=== PATIENT | female | born 1990 | race Two or more races ===

== ENCOUNTER 2017-06-17 19:23 | Emergency (ER) | payer OTHER ==
[~2017-06-17] VITALS: Ht 157.5 cm; Wt 86.3 kg
[2017-06-17 19:24] VITALS: BP 134/89
[2017-06-17] MEDS ORDERED: OXYcodone/APAP 5/325MG TABLET ONE (19:54)
[2017-06-17] MEDS ORDERED: ONDANSETRON ODT 4 MG ONE (19:54)
[2017-06-17] MEDS ORDERED: IBUPROFEN 200 MG TABLET PO ONE (20:00)
[2017-06-17] MEDS ORDERED: OXYcodone/APAP 5/325MG TABLET PO ONE (20:00)
[2017-06-17] MEDS ORDERED: ONDANSETRON ODT 4 MG PO ONE (20:00)
[2017-06-17] MEDS ORDERED: IBUPROFEN 200 MG TABLET ONE (20:05)
[2017-06-17 21:15] LABS: HEMATOCRIT 39.9 % (34.6-47.8); HEMOGLOBIN 13.4 g/dL (11.7-16.4); WHITE BLOOD COUNT 10.3 x10^3/uL (3.4-10)
[2017-06-17 21:27] LABS: BLOOD UREA NITROGEN 23 mg/dL (7-18)
== END 2017-06-17 21:47 | disposition home or self-care (01) ==
LOC: ED 21:36
DX: N61.0 Mastitis without abscess (principal); N64.4 Mastodynia
CPT/HCPCS: 36415; 76641; 80048; 82040; 85025; 99285; Q0162